=== PATIENT | female | born 2000 | race Two or more races ===

== ENCOUNTER 2023-05-13 14:22 | Emergency (ER) | payer MEDICAID, OTHER ==
[~2023-05-13] VITALS: Ht 170.2 cm; Wt 79.0 kg
[2023-05-13 15:58] LABS: Urine Bacteria FEW /hpf (None Seen); Urine Blood Negative /uL (Negative); Urine Specific Gravity 1.004 (1.001-1.035); Urine WBC 2 /hpf (0 - 5)
[2023-05-13 19:02] VITALS: BP 122/78
[2023-05-13] MEDS ORDERED: SULF800T23 PO (19:44)
== END 2023-05-13 19:54 | disposition home or self-care (01) ==
LOC: ER 14:22
DX: N39.0 Urinary tract infection, site not specified (principal)
CPT/HCPCS: 81001; 81025; 87210